=== PATIENT | female | born 1945 | race Caucasian/White ===

== ENCOUNTER 2021-10-15 12:15 | Emergency (ER) | payer MEDICARE, BC ==
[2021-10-15 14:20] LABS: CORONAVIRUS COVID-19 NAA POSITIVE (NEGATIVE)
== END 2021-10-15 16:49 | disposition home or self-care (01) ==
LOC: JP.ED 12:15
DX: U07.1 COVID-19 (principal); R00.1 Bradycardia, unspecified; Z88.8 Allergy status to other drugs, medicaments and biological substances; Z79.01 Long term (current) use of anticoagulants
CPT/HCPCS: 0241U; 36415; 71045; 80053; 84484; 85025; 93005; 99284